=== PATIENT | female | born 1975 | race Caucasian/White ===

== ENCOUNTER → 2020-06-06 | Outpatient (CLI) | payer OTHER | LOC: SLEEP 12:26 | DX: G47.33 Obstructive sleep apnea (adult) (pediatric) (principal) | CPT/HCPCS: 95810 ==

== ENCOUNTER 2020-10-05 11:03 | Observation (INO) | payer OTHER ==
[~2020-10-05] VITALS: Ht 162.6 cm; Wt 132.9 kg
[2020-10-05 14:06] LABS: HEMOGLOBIN 13.3 gm/dl (12.3-15.3); RED BLOOD COUNT 4.6 M/UL (4.00-5.10); WHITE BLOOD COUNT 10.5 K/UL (4.5-11.0)
[2020-10-05 14:39] LABS: BUN/CREATININE RATIO 12 (0-10)
[2020-10-05] MEDS ORDERED: HYDROCHLOROTHIA25 MG PO (14:48)
[2020-10-05] MEDS ORDERED: CITALOPRAM HBR40 MG PO (14:48)
[2020-10-05] MEDS ORDERED: MOBIC7.5 MG PO (14:49)
[2020-10-05] MEDS ORDERED: PROTONIX40 MG PO (14:49)
[2020-10-05] MEDS ORDERED: ROBAXIN 750 MG750 MG PO (14:49)
[2020-10-05] MEDS ORDERED: METOPROLOL TART25 MG PO ×2 (14:50→14:51)
[2020-10-05] MEDS ORDERED: PROAIR HFA8.5 GM INH (14:51)
[2020-10-06 05:33] LABS: HEMOGLOBIN 12.6 gm/dl (12.3-15.3); RED BLOOD COUNT 4.4 M/UL (4.00-5.10); WHITE BLOOD COUNT 11.5 K/UL (4.5-11.0)
[2020-10-06 05:48] LABS: BUN/CREATININE RATIO 10 (0-10)
[2020-10-06] MEDS ORDERED: BACTRIM DS TAB1 EACH PO (11:22)
[2020-10-06] MEDS ORDERED: HYDROCODON-ACE1 EAC2 PO (11:39)
[2020-10-06] MEDS ORDERED: COLACE100 MG PO (11:39)
== END 2020-10-06 14:13 | disposition home or self-care (01) ==
LOC: ER1 11:03 → CDU 14:23 → MED SURG 4 14:23
PROVIDERS: Emergency Medicine; Physician Assistant; ADMIT Internal Medicine
DX: N61.0 Mastitis without abscess (principal); I10 Essential (primary) hypertension; F41.9 Anxiety disorder, unspecified; K21.9 Gastro-esophageal reflux disease without esophagitis; E66.01 Morbid (severe) obesity due to excess calories; R73.03 Prediabetes; F17.210 Nicotine dependence, cigarettes, uncomplicated; Z88.0 Allergy status to penicillin; Z20.822 Contact with and (suspected) exposure to COVID-19; Z90.89 Acquired absence of other organs
CPT/HCPCS: 76641-RT; 80048; 80053; 80202; 84703; 85025; 85652; 86140; 87040; 87070; 87205; 94664; 94760; 96365; 96366; 96374; 96375; 96376; 99285; G0378; J0696; J3370; J7030; J7070; U0002

== ENCOUNTER → 2020-11-09 | Outpatient (CLI) | payer OTHER ==
[~2020-11-09] MED LIST: BACTRIM DS TAB1 EACH PO; CITALOPRAM HBR40 MG PO; COLACE100 MG PO; HYDROCHLOROTHIA25 MG PO; HYDROCODON-ACE1 EAC2 PO; METOPROLOL TART25 MG PO; MOBIC7.5 MG PO; PROAIR HFA8.5 GM INH; PROTONIX40 MG PO; ROBAXIN 750 MG750 MG PO
== END ==
LOC: ECHO 10:07
DX: R60.0 Localized edema (principal)
CPT/HCPCS: ECHO; 93306

== ENCOUNTER 2021-11-23 14:35 | Emergency (ER) | payer OTHER ==
[2021-11-23 15:24] LABS: RED BLOOD COUNT 4.93 M/UL (4.00-5.10); WHITE BLOOD COUNT 10.3 K/UL (4.5-11.0)
[2021-11-23 15:47] LABS: BUN/CREATININE RATIO 10 (0-10)
[2021-11-23] MEDS ORDERED: LOPRESSOR 25 MG25 MG PO (16:12)
== END 2021-11-23 16:17 | disposition home or self-care (01) ==
LOC: ER1 14:35
PROVIDERS: Physician Assistant Medical
DX: I10 Essential (primary) hypertension (principal); F17.210 Nicotine dependence, cigarettes, uncomplicated; Z88.0 Allergy status to penicillin
CPT/HCPCS: 71045; 80053; 81001; 82550; 82553; 84484; 85025; 93005; 99283